=== PATIENT | female | born 1995 | race American Indian/Alaskan Native ===

== ENCOUNTER 2017-09-13 14:54 | Emergency (ER) | payer OTHER ==
[2017-09-13 15:12] VITALS: BP 119/69
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
== END 2017-09-13 20:47 | disposition home or self-care (01) ==
LOC: ED 14:54
DX: S16.1XXA Strain of muscle, fascia and tendon at neck level, initial encounter (principal); S29.019A Strain of muscle and tendon of unspecified wall of thorax, initial encounter; V49.49XA Driver injured in collision with other motor vehicles in traffic accident, initial encounter; Y93.89 Activity, other specified; Y92.89 Other specified places as the place of occurrence of the external cause; Y99.8 Other external cause status
CPT/HCPCS: 99282

== ENCOUNTER 2020-11-28 22:25 | Emergency (ER) | payer OTHER ==
[2020-11-28] MEDS ORDERED: ACETAMINOPHEN 500 MG TAB PO ONE (23:54)
--- NOTE | 2020-11-29 00:16 | XRay Report ---
CHEST 2 VIEWS INDICATION: cough, shortness of breath. COMPARISON: None FINDINGS: SUPPORT DEVICES: None. HEART: Within normal limits. LUNGS/PLEURA: No acute air space or interstitial disease. No pneumothorax. ADDITIONAL FINDINGS: None. IMPRESSION: 1. No acute findings. Signer Name: Chintan Briscoe MD Signed: 11/29/2020 12:12 AM Workstation Name: [id number]
[2020-11-29 00:50] LABS: Basophils % (Auto) 0.2 % (0.0-1.8); Eosinophils # (Auto) 0.1 K/mm3 (0.0-0.4); Eosinophils % (Auto) 0.9 % (0.0-4.3); Hematocrit 30.4 % (30.3-42.9); Lymphocytes # (Auto) 0.3 K/mm3 (1.2-5.4); Lymphocytes % (Auto) 3.5 % (13.4-35.0); Mean Corpuscular HGB Conc 33 % (30-34); Mean Corpuscular Volume 91 fl (79-97); Monocytes # (Auto) 0.9 K/mm3 (0.0-0.8); Platelet Count 225 K/mm3 (140-440); Red Blood Count 3.33 M/mm3 (3.65-5.03)
[2020-11-29 00:57] LABS: Alanine Aminotransferase 12 units/L (7-56); Albumin 3.5 g/dL (3.9-5); Blood Urea Nitrogen 7 mg/dL (7-17); Calcium 8.4 mg/dL (8.4-10.2); Hemolysis Index 6
[2020-11-29 01:03] LABS: BUN/Creatinine Ratio 14
[2020-11-29 02:41] VITALS: BP 114/56
[2020-11-29] MEDS ORDERED: SODIUM CHLORIDE 0.9% 1000 ML 1,000 ML IV ONE (03:01)
--- NOTE | 2020-11-29 06:11 | Emergency Department Report ---
- General Chief Complaint: Dyspnea/Respdistress Stated Complaint: COUGH FEVER AND BODYACHES Time Seen by Provider: 11/29/20 05:19 Source: patient Mode of arrival: Ambulatory Limitations: No Limitations - History of Present Illness MD Complaint: fever, cough, rhinorrhea, nasal congestion -: Gradual Severity: mild, moderate Quality: dull Consistency: constant Associated Symptoms: chills, myalgias, headache, cough, nausea Treatments Prior to Arrival: none - Related Data Previous Rx's Medication Instructions Recorded Last Taken Type Cyclobenzaprine [Flexeril] 10 mg PO BID PRN #20 tablet 09/13/17 Unknown Rx Menthol/Camphor [[place] 1 applic TP TID PRN #1 tube 09/13/17 Unknown Rx Ointment] Naproxen [Naprosyn] 500 mg PO BID PRN #30 tablet 09/13/17 Unknown Rx Albuterol Mdi (or & Nicu Only) 1 puff IH Q4-6H PRN #1 inha 11/29/20 Unknown Rx [ProAir HFA Inhaler] Benzonatate [Tessalon Perles] 100 mg PO Q8HR #20 capsule 11/29/20 Unknown Rx Ketorolac [Toradol] 10 mg PO Q6H PRN #15 tablet 11/29/20 Unknown Rx Allergies Allergy/AdvReac Type Severity Reaction Status Date / Time No Known Allergies Allergy Unverified 09/13/17 15:07 ED Review of Systems ROS: Stated complaint: COUGH FEVER AND BODYACHES Other details as noted in HPI Comment: All other systems reviewed and negative ED Past Medical Hx - Past Medical History Previous Medical History?: No - Surgical History Past Surgical History?: No - Social History Smoking Status: Never Smoker Substance Use Type: Alcohol - Medications Home Medications: Home Medications Medication Instructions Recorded Confirmed Last Taken Type Cyclobenzaprine [Flexeril] 10 mg PO BID PRN #20 tablet 09/13/17 Unknown Rx Menthol/Camphor [[place] 1 applic TP TID PRN #1 tube 09/13/17 Unknown Rx Ointment] Naproxen [Naprosyn] 500 mg PO BID PRN #30 tablet 09/13/17 Unknown Rx Albuterol Mdi (or & [place]u Only) 1 puff IH Q4-6H PRN #1 inha 11/29/20 Unknown Rx [ProAir HFA Inhaler] Benzonatate [Tessalon Perles] 100 mg PO Q8HR #20 capsule 11/29/20 Unknown Rx Ketorolac [Toradol] 10 mg PO Q6H PRN #15 tablet 11/29/20 Unknown Rx ED Physical Exam - General Limitations: No Limitations General appearance: alert, in no apparent distress - Head Head exam: Present: atraumatic, normocephalic - Eye Eye exam: Present: normal appearance, PERRL, EOMI - ENT ENT exam: Present: normal exam, normal orophraynx, mucous membranes moist - Neck Neck exam: Present: normal inspection - Respiratory Respiratory exam: Present: normal lung sounds bilaterally. Absent: respiratory distress - Cardiovascular Cardiovascular Exam: Present: regular rate, normal rhythm. Absent: systolic murmur, diastolic murmur, rubs, gallop - GI/Abdominal GI/Abdominal exam: Present: soft, normal bowel sounds - Extremities Exam Extremities exam: Present: normal inspection - Back Exam Back exam: Present: normal inspection - Neurological Exam Neurological exam: Present: alert, oriented X3 - Psychiatric Psychiatric exam: Present: normal affect, normal mood - Skin Skin exam: Present: warm, dry, intact, normal color. Absent: rash ED Course Vital Signs 11/28/20 11/29/20 23:37 02:41 Temperature 100.2 F H 99.9 F H Pulse Rate 116 H 110 H Respiratory 18 18 Rate Blood Pressure 120/66 Blood Pressure 114/56 [Left] O2 Sat by Pulse 100 100 Oximetry ED Medical Decision Making - Lab Data Result diagrams: 11/29/20 00:23 11/29/20 00:23 Critical care attestation.: If time is entered above; I have spent that time in minutes in the direct care of this critically ill patient, excluding procedure time. ED Disposition Clinical Impression: Viral syndrome, Cough Disposition: DC-01 TO HOME OR SELFCARE Is pt being admited?: No Does the pt Need Aspirin: No Condition: Stable Instructions: Cool Mist Vaporizer, Cough, Adult, [id number] Additional Instructions: Please adhere to the patient instructions as we discussed although currently your symptoms are possibly consistent with assessment of COVID-19 this could change/worsen within the next few days. Please return to the emergency department should you experience any coughing up blood, shortness of breath, severe fever, chest pain, or any suggestion that your condition is worsening. Your chest x-ray was normal your vital signs were stable with a slight elevation in your heart rate stable at 98 please make sure to hydrate well and take the antipyretics for your temperature increased on your antioxidant vitamins Prescriptions: Albuterol Mdi (or & Nicu Only) [ProAir HFA Inhaler] 1 puff IH Q4-6H PRN #1 inha PRN Reason: Cough Benzonatate [Tessalon Perles] 100 mg PO Q8HR #20 capsule Ketorolac [Toradol] 10 mg PO Q6H PRN #15 tablet PRN Reason: Pain Referrals: PRIMARY CARE, [Primary Care Provider] - 3-5 Days [facility] [Provider Group] - 3-5 Days
== END 2020-11-29 07:47 | disposition home or self-care (01) ==
LOC: ED 22:25
DX: B34.9 Viral infection, unspecified (principal); R68.83 Chills (without fever); M79.10 Myalgia, unspecified site; R11.0 Nausea
CPT/HCPCS: 36415; 71046; 80053; 85025; 99283; J7030

== ENCOUNTER 2020-12-18 14:32 | Inpatient (IN) | payer OTHER ==
[2020-12-18] MEDS ORDERED: LOPERAMIDE 2 MG CAP PO PRN (16:47)
[2020-12-18] MEDS ORDERED: miSOPROStol 200 MCG TAB PR PRN (16:47)
[2020-12-18] MEDS ORDERED: OXYTOCIN 10 UNIT/1 ML INJ IM PRN (16:47)
[2020-12-18] MEDS ORDERED: METHYLERGONOVINE MALEATE 0.2 MG/ML VIAL IM PRN (16:47)
[2020-12-18] MEDS ORDERED: MINERAL OIL 30 ML ORAL LIQD PO PRN (16:47)
[2020-12-18] MEDS ORDERED: ePHEDrine SULFATE 50 MG/1 ML INJ IV PRN (16:47)
[2020-12-18] MEDS ORDERED: CARBOPROST TROMETHAMINE 250 MCG/1 ML INJ IM PRN (16:47)
[2020-12-18] MEDS ORDERED: TERBUTALINE 1 MG/1 ML INJ SUB-Q PRN (16:47)
[2020-12-18] MEDS ORDERED: BUTORPHANOL 2 MG/1 ML INJ IV PRN (16:53)
[2020-12-18] MEDS ORDERED: OXYTOCIN DRIP 30 UNITS/500 ML BAG IV SCH ×2 (17:00)
[2020-12-18] MEDS ORDERED: AMPICILLIN/NS 2 GM/100 ML 2 GM/100 ML BAG IV ONE (17:00)
[2020-12-18] MEDS ORDERED: fentaNYL 100 MCG/2 ML INJ IV ONE (18:00)
[2020-12-18] MEDS ORDERED: LIDOCAINE (2%) 20 MG/1 ML VIAL 20 ML MDV INFILTRATI ONE (18:00)
[2020-12-18] MEDS: LACTATED RINGERS 1,000 ML IV SCH (18:45)
[2020-12-18 18:56] LABS: Hematocrit 32.3 % (30.3-42.9); Mean Corpuscular HGB Conc 34 % (30-34); Mean Corpuscular Volume 91 fl (79-97); Platelet Count 248 K/mm3 (140-440); Red Blood Count 3.54 M/mm3 (3.65-5.03); Red Cell Distribution Width 14.4 % (13.2-15.2)
[2020-12-19] MEDS: AMPICILLIN/NS 1 GM/50 ML 1 GM/50 ML BAG IV SCH ×3 (02:07→10:09)
[2020-12-19] MEDS: LACTATED RINGERS 1,000 ML IV SCH ×2 (02:48→10:10)
[2020-12-19] MEDS ORDERED: BUTORPHANOL 2 MG/1 ML INJ IV PRN (12:00)
[2020-12-19] MEDS ORDERED: fentaNYL 100 MCG/2 ML INJ IV PRN (12:16)
[2020-12-19] MEDS ORDERED: NalbUPHINE 10 MG/1 ML INJ IV PRN ×2 (12:16→12:25)
[2020-12-19] MEDS ORDERED: ACETAMINOPHEN 325 MG TAB PO PRN ×2 (12:16→12:20)
[2020-12-19] MEDS ORDERED: diphenhydrAMINE 25 MG CAP PO PRN (12:20)
[2020-12-19] MEDS ORDERED: PROMETHAZINE 25 MG TAB PO PRN (12:20)
[2020-12-19] MEDS ORDERED: KETOROLAC 30 MG/1 ML INJ IV PRN (12:20)
[2020-12-19] MEDS ORDERED: WITCH HAZEL/ GLYCERIN PAD TP PRN (12:20)
[2020-12-19] MEDS ORDERED: PROMETHAZINE 25 MG RECT SUPP PR PRN (12:20)
[2020-12-19] MEDS ORDERED: ONDANSETRON 4 MG/2 ML INJ IV PRN (12:20)
[2020-12-19] MEDS ORDERED: MAGNESIUM HYDROXIDE (MOM) ORAL LIQD UDC PO PRN (12:20)
[2020-12-19] MEDS ORDERED: LANOLIN/ZINC/DIMETHICONE (LANSINOH) 7 GM TP PRN (12:20)
--- NOTE | 2020-12-19 12:32 | History and Physical Report ---
History of Present Illness Date of examination: 12/19/20 Date of admission: 12/18/20 Chief complaint: ROM History of present illness: 38+wks gestation. Primigravida. Past History Past Medical History: no pertinent history Past Surgical History: no surgical history Social history: no significant social history - Obstetrical History Expected Date of Delivery: 12/28/20 Actual Gestation: 38 Week(s) 5 Day(s) : 1 Medications and Allergies Allergies Allergy/AdvReac Type Severity Reaction Status Date / Time No Known Allergies Allergy Verified 12/18/20 15:02 Home Medications Medication Instructions Recorded Confirmed Last Taken Type Cyclobenzaprine [Flexeril] 10 mg PO BID PRN #20 tablet 09/13/17 12/19/20 Unknown Rx Menthol/Camphor [[place] 1 applic TP TID PRN #1 tube 09/13/17 12/19/20 Unknown Rx Ointment] Naproxen [Naprosyn] 500 mg PO BID PRN #30 tablet 09/13/17 12/19/20 Unknown Rx Albuterol Mdi (or & Nicu Only) 1 puff IH Q4-6H PRN #1 inha 11/29/20 12/19/20 Unknown Rx [ProAir HFA Inhaler] Benzonatate [Tessalon Perles] 100 mg PO Q8HR #20 capsule 11/29/20 12/19/20 Unknown Rx Ketorolac [Toradol] 10 mg PO Q6H PRN #15 tablet 11/29/20 12/19/20 Unknown Rx Active Meds: Active Medications Acetaminophen (Acetaminophen 325 Mg Tab) 650 mg PO Q4H PRN PRN Reason: Pain, Mild (1-3) Acetaminophen (Acetaminophen 325 Mg Tab) 650 mg PO Q4H PRN PRN Reason: Pain MILD(1-3)/Fever >100.5/JOINER Bisacodyl (Bisacodyl 10 Mg Rect Supp) 10 mg MD BID PRN PRN Reason: Constipation Butorphanol Tartrate (Butorphanol 2 Mg/1 Ml Inj) 2 mg IV Q2H PRN PRN Reason: Labor Pain Last Admin: 12/19/20 10:18 Dose: 2 mg Documented by: Carboprost Tromethamine (Carboprost Tromethamine 250 Mcg/1 Ml Inj) 250 mcg IM ONCE PRN PRN Reason: Uterine Bleeding Diphenhydramine HCl (Diphenhydramine 25 Mg Cap) 25 mg PO Q6H PRN PRN Reason: Itching Ephedrine Sulfate (Ephedrine Sulfate 50 Mg/1 Ml Inj) 10 mg IV Q2M PRN PRN Reason: Hypotension Fentanyl (Fentanyl 100 Mcg/2 Ml Inj) 100 mcg IV Q2H PRN PRN Reason: Pain,Severe (7-10) LABOR PAIN Oxytocin/Sodium Chloride (Pitocin/Ns 30 Unit/500ml) 30 units in 500 mls @ 2 mls/hr IV TITR MYRON; Protocol Last Titration: 12/19/20 10:09 Dose: 2 ml/hr, 2 mls/hr Documented by: Lactated Ringer's (Lactated Ringers) 1,000 mls @ 125 mls/hr IV DIRECT MYRON Last Admin: 12/19/20 10:10 Dose: 125 mls/hr Documented by: Oxytocin/Sodium Chloride (Pitocin/Ns 30 Unit/500ml) 30 units in 500 mls @ 40 mls/hr IV TITR MYRON; Protocol Ampicillin Sodium (Ampicillin/Ns 1 Gm/50 Ml) 1 gm in 50 mls @ 100 mls/hr IV Q4H MYRON; Protocol Stop: 12/19/20 23:59 Last Admin: 12/19/20 10:09 Dose: 100 mls/hr Documented by: Oxytocin/Sodium Chloride (Pitocin/Ns 30 Unit/500ml) 30 units in 500 mls @ 40 mls/hr IV TITR MYRON; Protocol Ibuprofen (Ibuprofen 600 Mg Tab) 600 mg PO Q6H MYRON Ketorolac Tromethamine (Ketorolac 30 Mg/1 Ml Inj) 30 mg IV Q6H PRN PRN Reason: Pain, Moderate (4-6) Stop: 12/24/20 12:19 Loperamide HCl (Loperamide 2 Mg Cap) 2 mg PO ONCE PRN PRN Reason: give with Hemabate Magnesium Hydroxide (Magnesium Hydroxide (Mom) Oral Liqd Udc) 30 ml PO HS PRN PRN Reason: Constipation Methylergonovine Maleate (Methylergonovine Maleate 0.2 Mg/Ml Vial) 0.2 mg IM ONCE PRN PRN Reason: Uterine Bleeding Mineral Oil (Mineral Oil 30 Ml Oral Liqd) 30 ml PO QHS PRN PRN Reason: Constipation Misoprostol (Misoprostol 200 Mcg Tab) 800 mcg MD ONCE PRN PRN Reason: Uterine Bleeding Multi-Ingredient Ointment (Lanolin/Zinc/Dimethicone (Lansinoh) 7 Gm) 1 applic TP PRN PRN PRN Reason: Sore Nipples Multivitamins/Iron/Calcium ( Gdc89-Lm Fumarate-Folic Acid Vit Tab) 1 each PO QDAY MYRON Nalbuphine HCl (Nalbuphine 10 Mg/1 Ml Inj) 1 mg IV Q2H PRN PRN Reason: Pain, Moderate (4-6) Stop: 12/19/20 12:30 Ondansetron HCl (Ondansetron 4 Mg/2 Ml Inj) 4 mg IV Q8H PRN PRN Reason: Nausea And Vomiting Oxytocin (Oxytocin 10 Unit/1 Ml Inj) 10 unit IM ONCE PRN PRN Reason: Uterine Bleeding Promethazine HCl (Promethazine 25 Mg Rect Supp) 25 mg MD Q6H PRN PRN Reason: Nausea And Vomiting Promethazine HCl (Promethazine 25 Mg Tab) 25 mg PO Q6H PRN PRN Reason: Nausea And Vomiting Sodium Chloride (Sodium Chloride 0.9% 10 Ml Flush Syringe) 10 ml IV PRN NR Terbutaline Sulfate (Terbutaline 1 Mg/1 Ml Inj) 0.25 mg SUB-Q ONCE PRN PRN Reason: Hyperstimulation/Hypertonicity Witch Jasmyn/Glycerin (Witch Jasmyn/ Glycerin Pad) 1 each TP PRN PRN PRN Reason: Hemorrhoid/cleansing/soothing Review of Systems All systems: negative - Vital Signs Vital signs: Vital Signs Temp Pulse BP Pulse Ox 99.2 F 73 123/75 99 12/18/20 15:01 12/18/20 15:01 12/18/20 15:01 12/18/20 15:01 Temp Pulse Resp BP Pulse Ox 98.5 F 112 H 18 149/72 100 12/19/20 05:59 12/19/20 12:23 12/19/20 02:10 12/19/20 12:20 12/19/20 12:23 - Physical Exam Lungs: Positive: Normal air movement Abdomen: Positive: soft Genitourinary (Female): Positive: normal external genitalia Uterus: Positive: enlarged Extremities: Positive: normal Deep Tendon Reflex Grade: Normal +2 - Obstetrical FHR: category 1 Cervical Dilatation: 4.5 Cervical Effacement Percentage: 100 station: 0+1 Results Result Diagrams: 12/18/20 18:30 Abnormal lab results 12/18/20 12/18/20 Range/Units 18:30 Unknown RBC 3.54 L (3.65-5.03) M/mm3 Membranes Rupture Positive A (Negative) All other labs normal. Assessment and Plan - Patient Problems (1) Term Current Visit: Yes Status: Acute (2) Rupture of membranes Current Visit: Yes Status: Acute Plan to address problem: Admit for delivery.
--- NOTE | 2020-12-19 12:41 | Procedure Note ---
OB Delivery Note - Delivery Date of Delivery: 12/19/20 Surgeon: URMILA BLANCHARD Estimated blood loss: <100cc - Vaginal Delivery presentation: vertex Delivery position: OA Intrapartum events: none Delivery induction: none Delivery augmentation: pitocin Delivery monitor: external FHT, external uterine Route of delivery: Delivery placenta: expressed, adherent Episiotomy: none Delivery laceration: 1st degree (labial, minor, no suturing required.) Anesthesia: none - Infant A at 1 minute: 9 at 5 minutes: 9 Gender: Female
[2020-12-19] MEDS ORDERED: OXYTOCIN DRIP 30 UNITS/500 ML BAG IV SCH (13:00)
[2020-12-19] MEDS: IBUPROFEN 600 MG TAB PO SCH (19:37)
[2020-12-20 00:46] LABS: Hematocrit 29.6 % (30.3-42.9); Hemoglobin 9.8 gm/dl (10.1-14.3)
[2020-12-20] MEDS: IBUPROFEN 600 MG TAB PO SCH ×4 (01:12→17:11)
[2020-12-20] MEDS: PRENATAL VIT27-FE FUMARATE-FOLIC ACID VIT TAB PO SCH (11:48)
--- NOTE | 2020-12-20 16:15 | Progress Note ---
Assessment and Plan - Patient Problems (1) Term Current Visit: Yes Status: Resolved (2) Rupture of membranes Current Visit: Yes Status: Resolved (3) state Current Visit: Yes Status: Acute Plan to address problem: Wants to go home. Subjective - Subjective Date of service: 12/20/20 Principal diagnosis: Post day 1 Interval history: 38+wks gestation. Primigravida. Patient reports: appetite normal, voiding normally, pain well controlled, ambulating normally Hendricks: doing well Objective - Vital Signs Latest vital signs: Vital Signs Temp Pulse Resp BP BP Pulse Ox Pulse Ox 12/20/20 11:47 20 12/20/20 08:50 98.7 F 84 20 116/68 97 12/20/20 08:30 97 12/20/20 03:05 98.9 F 87 18 114/57 99 12/19/20 21:40 98.3 F 81 18 128/78 100 98 12/19/20 18:36 100 - Exam Lungs: Present: Normal air movement Abdomen: Present: normal appearance, soft Extremities: Present: normal Deep Tendon Reflex Grade: Normal +2 - Labs Labs: Abnormal lab results 12/20/20 Range/Units 00:33 Hgb 9.8 L (10.1-14.3) gm/dl Hct 29.6 L (30.3-42.9) %
--- NOTE | 2020-12-20 16:17 | Discharge Summary ---
Providers - Providers Date of Admission: 12/19/20 12:16 Date of discharge: 12/20/20 Attending physician: URMILA BLANCHARD MD Primary care physician: URMILA BLANCHARD MD Hospitalization Reason for admission: active labor, rupture of membranes, IUP at term Delivery: Episiotomy: none Laceration: 1st degree Other procedures: none complications: none Condition at discharge: Good Disposition: 01 HOME / SELF CARE / HOMELESS - Discharge Diagnoses (1) Term Status: Resolved (2) Rupture of membranes Status: Resolved (3) state Status: Acute Plan - Provider Discharge Summary Activity: routine, no sex for 6 weeks, no heavy lifting 4 weeks, no strenuous exercise Diet: routine Instructions: routine Additional instructions: [] Smoking cessation referral if applicable(refer to patient education folder for contact #) [] Refer to [facility]'s [facility] Booklet Call your doctor immediately for: * Fever > 100.5 * Heavy vaginal bleeding ( >1 pad per hour) * Severe persistent headache * Shortness of breath * Reddened, hot, painful area to leg or breast * Drainage or odor from incision. * Keep incision clean and dry at all times and follow doctor's instructions regarding bathing/showering - Follow up plan Follow up: URMILA BLANCHARD MD [Primary Care Provider] - 7 Days
[2020-12-21] MEDS: IBUPROFEN 600 MG TAB PO SCH ×4 (00:44→13:26)
[2020-12-21 03:17] VITALS: BP 142/86
[2020-12-21] MEDS: PRENATAL VIT27-FE FUMARATE-FOLIC ACID VIT TAB PO SCH (08:55)
== END 2020-12-21 15:40 | disposition home or self-care (01) | DRG 775 ==
LOC: TRG 14:32 → APU 14:35 → LD 17:16 → TRG 12-19 12:22 → OB 12-19 14:33
PROVIDERS: ADMIT Obstetrics & Gynecology; ATTEND Obstetrics & Gynecology
PROC: 10E0XZZ Delivery of Products of Conception, External Approach (ICD-10-PCS; principal; 2020-12-19)
DX: O70.0 First degree perineal laceration during delivery (principal); Z37.0 Single live birth; Z3A.38 38 weeks gestation of pregnancy; Z20.822 Contact with and (suspected) exposure to COVID-19
CPT/HCPCS: 36415; 59025; 84112; 85014; 85018; 85027; 86592; 86850; 86900; 86901; 96360; 96361; 96374; 96376; G0378; A6250; J0290; J0595; J2590; J7120; U0003